=== PATIENT | male | born 1985 | race Caucasian/White ===

== ENCOUNTER 2023-04-06 18:55 | Inpatient (IN) | payer OTHER ==
[2023-04-06] MEDS ORDERED: SODIUM CHLORIDE 0.9% 500 ML INFUS.BAG IV ONE (20:08)
[2023-04-06] MEDS ORDERED: cloNIDine HCL 0.1 MG TABLET PO ONE (20:08)
[2023-04-06] MEDS ORDERED: ONDANSETRON 4 MG/2 ML VIAL IVPUSH ONE (20:08)
[2023-04-06] MEDS ORDERED: DOXYCYCLINE INJECTION 100 MG in DEXTROSE 5%-WATER 100 ML IVPB ONE (20:08)
[2023-04-06 20:29] LABS: BASO % 0.4 % (0-2.0); EOS % 0.7 % (0-4.5); HEMATOCRIT 37.3 % (35.4-49); HEMOGLOBIN 12.9 GM/dL (11.7-16.9); LYMPH % 18.3 % (8-40); MCH 28.2 pg (25.7-33.7); MCHC 34.5 g/dl (32.0-35.9); MEAN CELL VOLUME 81.6 fl (80-96); MEAN PLT VOLUME 8.6 fl (7.5-11.1); MONO % 5.1 % (3.8-10.2); NEUT % 75.5 % (42.8-82.8); PLATELET COUNT 296 10^3/uL (134-434); RBC 4.57 M/mm3 (4.00-5.60); RDW 14.3 % (11.9-15.9)
[2023-04-06 20:35] LABS: INR 1.31 (0.83-1.09); PROTHROMBIN TIME (PATIENT) 15.1 SEC (9.7-13.0)
[2023-04-06 20:38] LABS: ACTIVATED PTT 30.3 SECONDS (25.2-36.5)
[2023-04-06] MEDS ORDERED: ONDANSETRON 4 MG/2 ML VIAL ONE (20:53)
[2023-04-06] MEDS ORDERED: cloNIDine HCL 0.1 MG TABLET ONE ×2 (20:53→20:58)
[2023-04-06] MEDS ORDERED: DOXYCYCLINE HYCLATE 100 MG VIAL ONE (20:53)
[2023-04-06 20:55] LABS: POTASSIUM 5.9 mmol/L (3.5-5.1)
[2023-04-06 20:57] LABS: BLOOD UREA NITROGEN 9.9 mg/dL (7-18); CALCIUM 9.5 mg/dL (8.5-10.1)
[2023-04-06 20:58] LABS: MAGNESIUM 2.2 mg/dL (1.8-2.4)
[2023-04-06 21:01] LABS: CREATININE 0.9 mg/dL (0.55-1.3)
[2023-04-06 21:03] LABS: BILIRUBIN,TOTAL 0.6 mg/dL (0.2-1)
[2023-04-06] MEDS ORDERED: diazePAM CARPU-JECT 10 MG/2 ML DISP.SYRIN IVPUSH ONE (21:41)
[2023-04-06] MEDS ORDERED: diazePAM CARPU-JECT 10 MG/2 ML DISP.SYRIN ONE (21:43)
[2023-04-06 21:57] LABS: ERYTHROCYTE SEDIMENTATION RATE 44 mm/hr (0-10)
[2023-04-06] MEDS ORDERED: ONDANSETRON 4 MG/2 ML VIAL IVPUSH PRN (22:26)
[2023-04-06 23:37] LABS: CHLORIDE 111 mmol/L (98-107); SODIUM 138 mmol/L (136-145)
[2023-04-06 23:39] LABS: BLOOD UREA NITROGEN 7.8 mg/dL (7-18); CALCIUM 8.7 mg/dL (8.5-10.1); CO2 27 mmol/L (21-32); GLUCOSE,RANDOM 105 mg/dL (74-106)
[2023-04-06 23:43] LABS: CREATININE 0.8 mg/dL (0.55-1.3)
[2023-04-07 00:01] LABS: ANION GAP 0 MMOL/L (8-16); POTASSIUM 6.6 mmol/L (3.5-5.1)
[2023-04-07 01:51] VITALS: BMI 27.5
[2023-04-07] MEDS: SODIUM CHLORIDE 1,000 ML IV SCH ×3 (03:53→23:20)
[2023-04-07] MEDS ORDERED: LORazepam 2 MG/ML SDV VIAL IVPUSH ONE (08:23)
[2023-04-07 08:31] LABS: BASO % 0.4 % (0-2.0); HEMATOCRIT 36.4 % (35.4-49); HEMOGLOBIN 12.3 GM/dL (11.7-16.9); LYMPH % 30.8 % (8-40); MCH 28.1 pg (25.7-33.7); MCHC 33.7 g/dl (32.0-35.9); MEAN CELL VOLUME 83.4 fl (80-96); MEAN PLT VOLUME 8.5 fl (7.5-11.1); MONO % 7.6 % (3.8-10.2); NEUT % 59.2 % (42.8-82.8); PLATELET COUNT 252 10^3/uL (134-434); RBC 4.37 M/mm3 (4.00-5.60); WHITE BLOOD COUNT 6.1 K/mm3 (4.0-10.0)
[2023-04-07 08:55] LABS: POTASSIUM 4.2 mmol/L (3.5-5.1)
[2023-04-07 08:57] LABS: CALCIUM 8.9 mg/dL (8.5-10.1)
[2023-04-07 08:58] LABS: ALBUMIN 3.3 g/dl (3.4-5.0); BLOOD UREA NITROGEN 8.4 mg/dL (7-18); MAGNESIUM 2.2 mg/dL (1.8-2.4)
[2023-04-07 09:01] LABS: PHOSPHOROUS 3.5 mg/dL (2.5-4.9)
[2023-04-07 09:02] LABS: CREATININE 0.8 mg/dL (0.55-1.3)
[2023-04-07 09:03] LABS: BILIRUBIN,TOTAL 0.5 mg/dL (0.2-1); TOT PROT 7.3 g/dl (6.4-8.2)
[2023-04-07] MEDS: BUPRENORPHINE/NALOXONE 8 MG/2 MG FILM PACKET SL SCH ×2 (09:51→13:14)
[2023-04-07] MEDS: DOXYCYCLINE INJECTION 100 MG in DEXTROSE 5%-WATER 100 ML IVPB SCH ×3 (09:54→23:20)
[2023-04-07] MEDS ORDERED: DOXYCYCLINE INJECTION 100 MG in DEXTROSE 5%-WATER 100 ML IVPB SCH (10:00)
[2023-04-07] MEDS ORDERED: ENOXAPARIN NA (PORCINE) 40 MG/0.4 ML DISP.SYRIN SQ SCH (10:00)
[2023-04-07] MEDS ORDERED: IBUPROFEN 800 MG/8 ML IJ IVPB ONE (13:30)
[2023-04-07] MEDS ORDERED: PANTOPRAZOLE SODIUM 40 MG VIAL IVPUSH ONE (13:57)
[2023-04-07 18:18] VITALS: BP 124/79; PULSE 77; RESP 16; TEMP 98
[2023-04-07] MEDS ORDERED: LORazepam 0.5 MG TABLET PO PRN (18:33)
[2023-04-07 18:37] LABS: PH,URINE 6.5 (5.0-8.0); URINE APPEARANCE CLEAR; URINE BILIRUBIN NEGATIVE (NEGATIVE); URINE COLOR YELLOW; URINE GLUCOSE (UA) NEGATIVE (NEGATIVE); URINE KETONE NEGATIVE (NEGATIVE); URINE LEUK ESTERASE NEGATIVE (NEGATIVE); URINE NITRITE NEGATIVE (NEGATIVE); URINE PROTEIN NEGATIVE (NEGATIVE)
[2023-04-07] MEDS ORDERED: MELATONIN 5 MG TABLETS PO PRN (19:53)
== END 2023-04-07 23:50 | disposition left against medical advice (07) | DRG 770 ==
LOC: JER 18:55 → JERBED 20:22 → J7W 04-07 01:40
PROVIDERS: ADMIT Internal Medicine; ATTEND Internal Medicine
PROC: HZ2ZZZZ Detoxification Services for Substance Abuse Treatment (ICD-10-PCS; principal; 2023-04-06)
DX: F11.23 Opioid dependence with withdrawal (principal); R11.2 Nausea with vomiting, unspecified; R45.1 Restlessness and agitation; F41.8 Other specified anxiety disorders; F17.210 Nicotine dependence, cigarettes, uncomplicated; M86.8X7 Other osteomyelitis, ankle and foot; Z59.00 Homelessness unspecified
CPT/HCPCS: 36415; 73630-TC-RT-FY; 76937; 80048; 80053; 81003; 82962; 83036; 83735; 84100; 84132; 84436; 84443; 85025; 85610; 85651; 85730; 86140; 86850; 86900; 86901; 87040; 87086; 93005; 93010; 99285-25